=== PATIENT | male | born 1960 | race Caucasian/White ===

== ENCOUNTER 2022-05-27 11:17 | Emergency (ER) | payer OTHER ==
[2022-05-27] MEDS: Sodium Chloride 0.9% 1,000 ML IV ONE (12:05)
[2022-05-27 12:22] LABS: ESTIMATED GFR 67 mL/min (>60)
[2022-05-27 12:30] LABS: TROPONIN I HIGH SENSITIVITY 4.9 pg/ml (<=60.4)
== END 2022-05-27 13:49 | disposition home or self-care (01) ==
LOC: LB.ED 11:17
DX: R55 Syncope and collapse (principal); Z88.5 Allergy status to narcotic agent; Z88.8 Allergy status to other drugs, medicaments and biological substances; Z79.82 Long term (current) use of aspirin; Z79.899 Other long term (current) drug therapy
CPT/HCPCS: 36415; 70450; 71250; 74176; 80053; 83690; 83880; 84484; 85025; 85379; 85610; 85730; 93005; 96360; 96361; 99284-25; A0425; A0429; J7030